=== PATIENT | male | born 1985 | race Caucasian/White ===

== ENCOUNTER 2022-12-08 17:28 | Emergency (ER) | payer BC, OTHER ==
--- NOTE | 2022-12-08 18:00 | ED ---
General Adult HPI - General Stated complaint: lower abd pain Time Seen by Provider: 12/08/22 17:59 - History of Present Illness Initial comments: Patient is a 37-year-old male presenting with chief complaint of abdominal pain. Patient states that he is having pain across the bilateral lower quadrants, he is also having worsening GERD symptoms. Pain is worse on the left side. Patient had similar pain a few weeks ago which then stopped, pain resumed 3 days ago. He admits to nausea, vomiting, diarrhea. No chest pain, difficulty breathing, fever, chills, hematemesis, hematochezia, melena, rectal bleeding, rectal pain, dysuria, hematuria, back pain. - Related Data Home Medications Medication Instructions Recorded Confirmed Ondansetron Odt [Zofran ODT] 4 mg SL Q8H PRN 12/08/22 12/08/22 Previous Rx's Medication Instructions Recorded Omeprazole 20 mg PO DAILY #20 cap 12/08/22 Ondansetron Odt [Zofran Odt] 4 mg PO Q8HR PRN #20 tab 12/08/22 Allergies Allergy/AdvReac Type Severity Reaction Status Date / Time No Known Allergies Allergy Verified 12/08/22 18:09 Review of Systems ROS Statement: Those systems with pertinent positive or pertinent negative responses have been documented in the HPI. ROS Other: All systems not noted in ROS Statement are negative. Past Medical History Past Medical History: No Reported History History of Any Multi-Drug Resistant Organisms: None Reported Past Surgical History: No Surgical Hx Reported Past Psychological History: No Psychological Hx Reported Past Alcohol Use History: None Reported Past Drug Use History: None Reported General Exam - General Exam Comments Initial Comments: Visual Physical Exam Vital signs reviewed General: Well-appearing, nontoxic, no acute distress. Head: Normocephalic, atraumatic Eyes: PERRLA, EOMI ENT: Airway patent Chest: Nonlabored breathing Skin: No visual rash, normal skin tone Neuro: Alert and oriented 3 Musculoskeletal: No gross abnormalities Limitations: no limitations General appearance: alert, in no apparent distress Head exam: Present: atraumatic, normocephalic, normal inspection Eye exam: Present: normal appearance, EOMI. Absent: scleral icterus, periorbital swelling Neck exam: Present: normal inspection, full ROM Respiratory exam: Present: normal lung sounds bilaterally. Absent: respiratory distress, wheezes, rales, rhonchi, stridor Cardiovascular Exam: Present: regular rate, normal rhythm, normal heart sounds. Absent: systolic murmur, diastolic murmur, rubs, gallop, clicks GI/Abdominal exam: Present: soft, tenderness (diffuse). Absent: distended, guarding, rebound, rigid Rectal exam: Present: normal inspection, normal rectal tone Neurological exam: Present: alert, oriented X3, CN II-XII intact Psychiatric exam: Present: normal affect, normal mood Skin exam: Present: warm, dry, intact, normal color. Absent: rash Course Vital Signs 12/08/22 12/08/22 18:07 22:05 Temperature 98.6 F 98.1 F Pulse Rate 88 76 Respiratory 16 16 Rate Blood Pressure 138/92 130/78 O2 Sat by Pulse 97 99 Oximetry Medical Decision Making - Medical Decision Making Was pt. sent in by a medical professional or institution (, PA, GEOLOGICAL DRAFTER, urgent care, hospital, or shelter...) When possible be specific @ -No Did you speak to anyone other than the patient for history (EMS, parent, family, police, friend...)? What history was obtained from this source @ -No Did you review nursing and triage notes (agree or disagree)? Why? @ -I reviewed and agree with nursing and triage notes Were old charts reviewed (outside hosp., previous admission, EMS record, old EKG, old radiological studies, urgent care reports/EKG's, shelter records)? Report findings @ -No old charts were reviewed Differential Diagnosis (chest pain, altered mental status, abdominal pain women, abdominal pain men, vaginal bleeding, weakness, fever, dyspnea, syncope, headache, dizziness, GI bleed, back pain, seizure, CVA, palpatations, mental health, musculoskeletal)? @ -MDM Differential Abdominal Pain Men: Appendicitis, cholecystitis, diverticulosis, ischemic bowel, pancreatitis, hepatitis, UTI, gastroenteritis, AAA, incarcerated hernia, bowel obstruction, constipation, inflammatory bowel, hepatitis, peptic ulcer disease, splenic infarction, perforated viscus, testicular torsion... This is not meant to be an all-inclusive list EKG interpreted by me (3pts min.). @ -As above X-rays interpreted by me (1pt min.). @ -None done CT interpreted by me (1pt min.). @ CT initially showed focal area of eccentric rectal wall thickening as well as mild adjacent fat stranding correlate with colitis. CT was repeated with rectal contrast which showed that rectal wall thickening was no longer visualized there was also no more abnormal wall thickening present in the colon U/S interpreted by me (1pt. min.). @ -None done What testing was considered but not performed or refused? (CT, X-rays, U/S, labs)? Why? @ -None What meds were considered but not given or refused? Why? @ -None Did you discuss the management of the patient with other professionals (professionals i.e. , PA, GEOLOGICAL DRAFTER, lab, RT, psych nurse, community mental health social worker, annealer, teacher, juvenile probation officer, high risk case manager)? Give summary @ -No Was smoking cessation discussed for >3mins.? @ -No Was critical care preformed (if so, how long)? @ -No Were there social determinants of health that impacted care today? How? (Homelessness, low income, unemployed, alcoholism, drug addiction, transportation, low edu. Level, literacy, decrease access to med. care, correction, rehab)? @ -No Was there de-escalation of care discussed even if they declined (Discuss DNR or withdrawal of care, Hospice)? DNR status @ -No What co-morbidities impacted this encounter? (DM, HTN, Smoking, COPD, CAD, Cancer, CVA, ARF, Chemo, Hep., AIDS, mental health diagnosis, sleep apnea, morbid obesity)? @ -None Was patient admitted / discharged? Hospital course, mention meds given and route, prescriptions, significant lab abnormalities, going to OR and other pertinent info. @ -Discharge. Patient is a 37-year-old male presenting with chief complaint of left-sided abdominal pain as well as nausea, vomiting, diarrhea. On physical examination there is some diffuse abdominal tenderness. Lab work is essentially unremarkable. Initial CT showed evidence of rectal wall thickening and signs of colitis, repeat CT with rectal contrast on which rectal wall thickening and signs of colitis were no longer visualized with full distention. Patient is educated on these findings. He is instructed to follow-up with PCP. I provided him with omeprazole for his increased GERD symptoms. Follow-up with PCP. Report back to ER with any new or worsening symptoms. Discussed return parameters and answered all questions. Patient conveyed verbal understanding and agreed to the plan. I discussed this case in detail with my attending Dr. Norris Undiagnosed new problem with uncertain prognosis? @ -No Drug Therapy requiring intensive monitoring for toxicity (Heparin, Nitro, Insulin, Cardizem)? @ -No Were any procedures done? @ -No Diagnosis/symptom? @ -GERD Acute, or Chronic, or Acute on Chronic? @ -Acute Uncomplicated (without systemic symptoms) or Complicated (systemic symptoms)? @ -Uncomplicated Side effects of treatment? @ -No Exacerbation, Progression, or Severe Exacerbation? @ -No Poses a threat to life or bodily function? How? (Chest pain, [place], [place], pneumonia, PE, COPD, DKA, ARF, appy, cholecystitis, CVA, Diverticulitis, Homicidal, Suicidal, threat to staff... and all critical care pts) @ -No - Lab Data Result diagrams: 12/08/22 19:22 12/08/22 19:22 Lab Results 12/08/22 12/08/22 12/08/22 Range/Units 19:22 19:22 19:22 WBC 4.5 (3.8-10.6) k/uL RBC 5.43 (4.30-5.90) m/uL Hgb 15.8 (13.0-17.5) gm/dL Hct 47.1 (39.0-53.0) % MCV 86.9 (80.0-100.0) fL MCH 29.1 (25.0-35.0) pg MCHC 33.5 (31.0-37.0) g/dL RDW 12.3 (11.5-15.5) % Plt Count 184 (150-450) k/uL MPV 9.4 Neutrophils % 45 % Lymphocytes % 38 % Monocytes % 8 % Eosinophils % 4 % Basophils % 0 % Neutrophils # 2.0 (1.3-7.7) k/uL Lymphocytes # 1.7 (1.0-4.8) k/uL Monocytes # 0.4 (0-1.0) k/uL Eosinophils # 0.2 (0-0.7) k/uL Basophils # 0.0 (0-0.2) k/uL Sodium 138 (137-145) mmol/L Potassium 4.0 (3.5-5.1) mmol/L Chloride 104 (98-107) mmol/L Carbon Dioxide 23 (22-30) mmol/L Anion Gap 11 mmol/L BUN 13 (9-20) mg/dL Creatinine 0.87 (0.66-1.25) mg/dL Est GFR (CKD-EPI)AfAm >90 (>60 ml/min/1.73 sqM) Est GFR (CKD-EPI)NonAf >90 (>60 ml/min/1.73 sqM) Glucose 88 (74-99) mg/dL Plasma Lactic Acid [place] 0.9 (0.7-2.0) mmol/L Calcium 9.2 (8.4-10.2) mg/dL Total Bilirubin 1.1 (0.2-1.3) mg/dL AST 45 (17-59) U/L ALT 73 H (4-49) U/L Alkaline Phosphatase 54 (38-126) U/L Total Protein 7.8 (6.3-8.2) g/dL Albumin 4.6 (3.5-5.0) g/dL Amylase 47 (30-110) U/L Lipase 55 (23-300) U/L Urine Color Urine Appearance (Clear) Urine pH (5.0-8.0) Ur Specific [place] (1.001-1.035) Urine Protein (Negative) Urine Glucose (UA) (Negative) Urine Ketones (Negative) Urine Blood (Negative) Urine Nitrite (Negative) Urine Bilirubin (Negative) Urine Urobilinogen (<2.0) mg/dL Ur Leukocyte Esterase (Negative) 12/08/22 Range/Units 22:05 WBC (3.8-10.6) k/uL RBC (4.30-5.90) m/uL Hgb (13.0-17.5) gm/dL Hct (39.0-53.0) % MCV (80.0-100.0) fL MCH (25.0-35.0) pg MCHC (31.0-37.0) g/dL RDW (11.5-15.5) % Plt Count (150-450) k/uL MPV Neutrophils % % Lymphocytes % % Monocytes % % Eosinophils % % Basophils % % Neutrophils # (1.3-7.7) k/uL Lymphocytes # (1.0-4.8) k/uL Monocytes # (0-1.0) k/uL Eosinophils # (0-0.7) k/uL Basophils # (0-0.2) k/uL Sodium (137-145) mmol/L Potassium (3.5-5.1) mmol/L Chloride (98-107) mmol/L Carbon Dioxide (22-30) mmol/L Anion Gap mmol/L BUN (9-20) mg/dL Creatinine (0.66-1.25) mg/dL Est GFR (CKD-EPI)AfAm (>60 ml/min/1.73 sqM) Est GFR (CKD-EPI)NonAf (>60 ml/min/1.73 sqM) Glucose (74-99) mg/dL Plasma Lactic Acid [place] (0.7-2.0) mmol/L Calcium (8.4-10.2) mg/dL Total Bilirubin (0.2-1.3) mg/dL AST (17-59) U/L ALT (4-49) U/L Alkaline Phosphatase (38-126) U/L Total Protein (6.3-8.2) g/dL Albumin (3.5-5.0) g/dL Amylase (30-110) U/L Lipase (23-300) U/L Urine Color Yellow Urine Appearance Clear (Clear) Urine pH 5.5 (5.0-8.0) Ur Specific [place] >1.050 H (1.001-1.035) Urine Protein Trace H (Negative) Urine Glucose (UA) Negative (Negative) Urine Ketones Negative (Negative) Urine Blood Negative (Negative) Urine Nitrite Negative (Negative) Urine Bilirubin Negative (Negative) Urine Urobilinogen <2.0 (<2.0) mg/dL Ur Leukocyte Esterase Negative (Negative) Disposition Clinical Impression: Abdominal pain, GERD (gastroesophageal reflux disease) Disposition: HOME SELF-CARE Condition: Good Instructions (If sedation given, give patient instructions): Abdominal Pain (ED) Additional Instructions: Follow-up with PCP, suggestions have been provided. Report back to ER with any new or worsening symptoms. Take medication as prescribed. Prescriptions: Omeprazole 20 mg PO DAILY #20 cap Ondansetron Odt [Zofran Odt] 4 mg PO Q8HR PRN #20 tab PRN Reason: Nausea Is patient prescribed a controlled substance at d/c from ED?: No Referrals: None,Stated [Primary Care Provider] - 1-2 days [facility] [NON-STAFF] - 1-2 days Kelvin Morales MD [STAFF PHYSICIAN] - 1-2 days Time of Disposition: 22:50
[2022-12-08 18:09] VITALS: RESP 16
[2022-12-08] MEDS ORDERED: SODIUM CHLORIDE 0.9% 1,000 ML IV STA (19:04)
[2022-12-08] MEDS ORDERED: ONDANSETRON 4 MG/2 ML VIAL IVP STA (19:04)
[2022-12-08] MEDS ORDERED: KETOROLAC 15 MG/ML 1 ML VIAL IVP STA (19:04)
[2022-12-08 19:43] LABS: Basophils % (A) 0 %; Eosinophils # (A) 0.2 k/uL (0-0.7); Eosinophils % (A) 4 %; HCT 47.1 % (39.0-53.0); HGB 15.8 gm/dL (13.0-17.5); Lymphocytes # (A) 1.7 k/uL (1.0-4.8); Lymphocytes % (A) 38 %; MCH 29.1 pg (25.0-35.0); MCHC 33.5 g/dL (31.0-37.0); MCV 86.9 fL (80.0-100.0); Mean Platelet Volume 9.4; Monocytes # (A) 0.4 k/uL (0-1.0); Monocytes % (A) 8 %; Neutrophils % (A) 45 %; Platelet Count 184 k/uL (150-450); RBC 5.43 m/uL (4.30-5.90); RDW 12.3 % (11.5-15.5); WBC 4.5 k/uL (3.8-10.6)
--- NOTE | 2022-12-08 19:58 | CT ---
EXAMINATION TYPE: CT abdomen pelvis w con CT DLP: 1490 mGycm, Automated exposure control for dose reduction was used. DATE OF EXAM: 12/08/2022 7:44 PM COMPARISON: None CLINICAL INDICATION:Male, 37 years old with history of Left lower quadrant pain; LLQ pain TECHNIQUE: Axial CT of the abdomen and pelvis. Sagittal and coronal reformats were created on a [employer] workstation. Contrast used:100 mL of Isovue 300 with IV Contrast, Oral contrast used: without Oral Contrast FINDINGS: LOWER CHEST: Unremarkable ABDOMEN LIVER: Diffusely hypoattenuating parenchyma. GALLBLADDER AND BILE DUCTS: Unremarkable. PANCREAS: Unremarkable. SPLEEN: Unremarkable. ADRENAL GLANDS: Unremarkable. KIDNEYS AND URETERS: No evidence of hydronephrosis or renal calculus. The ureters are unremarkable. Duplicated left collecting system. PELVIS BLADDER: Unremarkable REPRODUCTIVE: Unremarkable. ABDOMEN & PELVIS STOMACH AND BOWEL: No evidence of bowel obstruction. The appendix is not definitively visualized. Mil d narrowing of the rectum with eccentric wall thickening series 201 image 79 measuring up to 6 mm. Th ere is some mild fat stranding changes in this region. Moderate amount of stool within the sigmoid co candace. PERITONEUM/RETROPERITONEUM: No evidence of pneumoperitoneum or free fluid. VASCULATURE: No evidence of aortic aneurysm. MUSCULOSKELETAL: No acute osseous abnormalities LYMPH NODES: No gross evidence for lymphadenopathy. SOFT TISSUE/ABDOMINAL WALL: Unremarkable IMPRESSION: There is focal area of eccentric rectal wall thickening appreciated which is indeterminate. Mild smita cent fat stranding changes are felt to be present which could correlate with patient's pain with a co litis. Given the eccentric appearance underlying neoplasm is not excluded. Further evaluation and cor relation for risk factors for rectal cancer are recommended.
[2022-12-08 20:09] LABS: ALT 73 U/L (4-49); African American GFR (CKD) >90 (>60 ml/min/1.73 sqM); Albumin 4.6 g/dL (3.5-5.0); Amylase 47 U/L (30-110); Anion Gap 11 mmol/L; Blood Urea Nitrogen 13 mg/dL (9-20); Calcium 9.2 mg/dL (8.4-10.2); Carbon Dioxide 23 mmol/L (22-30); Chloride 104 mmol/L (98-107); Glucose 88 mg/dL (74-99); Lipase 55 U/L (23-300); Non-African American GFR(CKD) >90 (>60 ml/min/1.73 sqM); Sodium 138 mmol/L (137-145); Total Bilirubin 1.1 mg/dL (0.2-1.3); Total Protein 7.8 g/dL (6.3-8.2)
[2022-12-08 20:14] LABS: AST 45 U/L (17-59); Alkaline Phosphatase 54 U/L (38-126)
--- NOTE | 2022-12-08 22:15 | CT ---
EXAMINATION TYPE: CT abdomen pelvis wo con CT DLP: 751.2 mGycm, Automated exposure control for dose reduction was used. DATE OF EXAM: 12/08/2022 10:04 PM COMPARISON: CT abdomen pelvis most recent from same day CLINICAL INDICATION:Male, 37 years old with history of rectal wall thickening; rectal wall thickening TECHNIQUE: Axial CT of the pelvis. Sagittal and coronal reformats were created on a separate worksta tion. Contrast used: None contrast used: Rectal contrast. FINDINGS: BLADDER: Unremarkable REPRODUCTIVE: Unremarkable. ABDOMEN & PELVIS STOMACH AND BOWEL: No evidence of bowel obstruction. The rectum is completely distended with rectal c ontrast. Evaluation demonstrates no evidence of focal thickening seen on prior CT. Fat stranding montejo ges seen posterior to the rectal wall thickening are no longer visualized. No evidence of wall thicke huan of the visualized colon within the abdomen. PERITONEUM/RETROPERITONEUM: No evidence of pneumoperitoneum or free fluid. VASCULATURE: No evidence of aortic aneurysm. MUSCULOSKELETAL: No acute osseous abnormalities LYMPH NODES: No gross evidence for lymphadenopathy. SOFT TISSUE/ABDOMINAL WALL: Unremarkable IMPRESSION: Prior area of focal rectal wall thickening is no longer visualized. Finding on prior was nondistentio n artifact. There is no abnormal wall thickening present in the visualized colon on this exam. No acu te abdominal process visualized. The questionable fat stranding changes around this nondistended port ion on previous CT is not definitively visualized now with full distention.
[2022-12-08 22:22] LABS: Appearance,Urine Clear (Clear); Bilirubin,Urine Negative (Negative); Blood,Urine Negative (Negative); Color,Urine Yellow; Glucose,Urine (UA) Negative (Negative); Ketones,Urine Negative (Negative); Leukocyte Esterase,Urine Negative (Negative); Nitrite,Urine Negative (Negative); PH, Urine 5.5 (5.0-8.0); Protein,Urine Trace (Negative); Urobilinogen,Urine <2.0 mg/dL (<2.0)
[2022-12-08 22:24] LABS: Specific Gravity,Urine >1.050 (1.001-1.035)
[2022-12-08 22:38] VITALS: BP 130/78; PULSE 76
[2022-12-08 22:48] VITALS: TEMP 98.1
== END 2022-12-08 22:55 | disposition home or self-care (01) ==
LOC: EC 17:28
DX: K21.9 Gastro-esophageal reflux disease without esophagitis (principal); K52.9 Noninfective gastroenteritis and colitis, unspecified; R10.31 Right lower quadrant pain
CPT/HCPCS: 36415; 80053; 82150; 83605; 83690; 85025; 81003; 74176; 74177; 99284; 96374; 96375; 96361 ×3; J2405; J1885; Q9967

== ENCOUNTER → 2024-04-03 | Outpatient (CLI) | payer OTHER | LOC: CPPFTMAIN 09:35 | PROVIDERS: ATTEND Internal Medicine | DX: J45.909 Unspecified asthma, uncomplicated (principal) | CPT/HCPCS: 94060; 94726; 94729 ==

== ENCOUNTER 2024-09-07 21:51 | Emergency (ER) | payer OTHER ==
[2024-09-07 21:57] VITALS: TEMP 98.3
[2024-09-07 22:41] LABS: Basophils # (A) 0.1 k/uL (0-0.2); Basophils % (A) 1 %; Eosinophils # (A) 0.5 k/uL (0-0.7); Eosinophils % (A) 5 %; HCT 47.9 % (39.0-53.0); HGB 16.6 gm/dL (13.0-17.5); Lymphocytes # (A) 2.5 k/uL (1.0-4.8); Lymphocytes % (A) 26 %; MCH 30.2 pg (25.0-35.0); MCHC 34.8 g/dL (31.0-37.0); MCV 86.8 fL (80.0-100.0); Mean Platelet Volume 9.7; Monocytes # (A) 0.6 k/uL (0-1.0); Monocytes % (A) 6 %; Neutrophils # (A) 5.7 k/uL (1.3-7.7); Neutrophils % (A) 59 %; Platelet Count 198 k/uL (150-450); RBC 5.52 m/uL (4.30-5.90); RDW 12.5 % (11.5-15.5); WBC 9.5 k/uL (3.8-10.6)
[2024-09-07] MEDS: KETOROLAC 15 MG/ML 1 ML VIAL IVP STA (22:41)
[2024-09-07] MEDS: SODIUM CHLORIDE 0.9% 1,000 ML IV STA (22:41)
[2024-09-07 22:54] LABS: INR 0.9 (<1.2); Partial Thromboplastin Time 24.1 sec (22.0-30.0); Prothrombin Time 10.1 sec (10.0-12.5)
--- NOTE | 2024-09-07 22:56 | ED ---
Chest Pain HPI - General Source: patient, RN notes reviewed Mode of arrival: ambulatory Limitations: no limitations - History of Present Illness MD Complaint: chest pain <Jessica Sinclair - Last Filed: 09/08/24 00:59> <Jennifer Sylvester - Last Filed: 09/08/24 04:21> - General Chief Complaint: Chest Pain Stated Complaint: Chest Pain, Shortness of Breath Time Seen by Provider: 09/07/24 22:03 - History of Present Illness Initial Comments: This is a 39-year-old male who presents to the emergency department for chest pain. Reports having URI symptoms for the last couple of days. This morning he started to develop chest pain around 6 AM. Pain is left-sided and states that it radiates into his back. He feels short of breath and is also having difficulty taking a deep breath. Pain is described as sharp and worse with inhalation. Denies any personal history of cardiac issues. Reports a possible cardiac history in one of his grandparents. Denies any nausea or vomiting or history of chest pain like this in the past. (Jessica Sinclair) - Related Data Home Medications Medication Instructions Recorded Confirmed Ondansetron Odt [Zofran ODT] 4 mg SL Q8H PRN 12/08/22 12/08/22 Previous Rx's Medication Instructions Recorded Omeprazole 20 mg PO DAILY #20 cap 12/08/22 Ondansetron Odt [Zofran Odt] 4 mg PO Q8HR PRN #20 tab 12/08/22 Allergies Allergy/AdvReac Type Severity Reaction Status Date / Time No Known Allergies Allergy Verified 09/07/24 21:57 Review of Systems ROS Other: All systems not noted in ROS Statement are negative. <Jessica Sinclair - Last Filed: 09/08/24 00:59> ROS Other: All systems not noted in ROS Statement are negative. <Jennifer Sylvester - Last Filed: 09/08/24 04:21> ROS Statement: Those systems with pertinent positive or pertinent negative responses have been documented in the HPI. Past Medical History Past Medical History: No Reported History History of Any Multi-Drug Resistant Organisms: None Reported Past Surgical History: No Surgical Hx Reported Past Psychological History: No Psychological Hx Reported Smoking Status: Never smoker Past Alcohol Use History: None Reported Past Drug Use History: None Reported <Jessica Sinclair - Last Filed: 09/08/24 00:59> General Exam Limitations: no limitations General appearance: alert, in no apparent distress Head exam: Present: atraumatic, normocephalic, normal inspection Respiratory exam: Present: normal lung sounds bilaterally, chest wall tenderness. Absent: respiratory distress, wheezes, rales, rhonchi, stridor Cardiovascular Exam: Present: regular rate, normal rhythm, normal heart sounds. Absent: systolic murmur, diastolic murmur, rubs, gallop, clicks Neurological exam: Present: alert, oriented X3, CN II-XII intact Psychiatric exam: Present: normal affect, normal mood Skin exam: Present: warm, dry, intact, normal color. Absent: rash <Jessica Sinclair - Last Filed: 09/08/24 00:59> Course Vital Signs 09/07/24 09/08/24 09/08/24 21:54 00:12 01:52 Temperature 98.3 F Pulse Rate 86 76 79 Respiratory 20 18 18 Rate Blood Pressure 145/106 131/70 121/80 O2 Sat by Pulse 97 97 99 Oximetry Chest Pain MDM <Jessica Sinclair - Last Filed: 09/08/24 00:59> - MDM This is a 39-year-old male who presents to the emergency department for chest pain. Was pt. sent in by a medical professional or institution? @ -No Did you speak to anyone other than the patient for history? @ -No Did you review nursing and triage notes? @ -Yes, and I agree, it is accurate with regards to the patient's symptoms. Were old charts reviewed? @ -No Differential Diagnosis? @ -Differential Chest Pain: Stable Angina, Unstable Angina, STEMI, NSTEMI Aortic Dissection, Pneumothorax, Musculoskeletal, Esophageal Spasm GERD, Cholecystitis, Pancreatitis, Zoster, this is not meant to be an all-inclusive list. EKG interpreted by me (3pts min.)? @ -EKG interpreted by me demonstrating the following: Sinus rhythm. Ventri cular rate 90 bpm, NE interval 150 ms, QRS duration 106 ms, QTc 409 ms. X-rays interpreted by me (1pt min.)? @ -Chest x-ray obtained, my interpretation identifies no localized consolidations or infiltrates. CT interpreted by me (1pt min.)? @ -Not obtained U/S interpreted by me (1pt. min.)? @ -Not obtained What testing was considered but not performed? (CT, X-rays, U/S, labs)? Why? @ -None What meds were considered but not given? Why? @ -None Did you discuss the management of the patient with other professionals? @ -No Did you reconcile home meds? @ -No Was smoking cessation discussed for >3mins.? @ -No Was critical care preformed (if so, how long)? @ -No Were there social determinants of health that impacted care today? How? (Homelessness, low income, unemployed, alcoholism, drug addiction, transportation, low edu. Level, literacy, decrease access to med. care, longterm, rehab)? @ -No Was there de-escalation of care discussed even if they declined? (Discuss DNR or withdrawal of care, Hospice)? @ -No What co-morbidities impacted this encounter? (DM, HTN, Smoking, COPD, CAD, Cancer, CVA, Hep., AIDS, mental health diagnosis, sleep apnea, morbid obesity)? @ -None Was patient admitted / discharged? @ -Lab work unremarkable. D-dimer and troponin negative. COVID, influenza, and RSV testing negative. Chest x-ray reveals no acute process. On exam his pain was reproducible. We started with a dose of Toradol and he felt like he may have had some improvement with this. He was then given aspirin and nitroglycerin. He is not sure if this was effective or not. States that it is possible. Nitro paste was then applied. He again felt like it may have brought the pain down a notch but is not entirely sure. It is also possible that the Toradol had been given more time to work. While the patient is obese, he has no other cardiac risk factors. Patient in agreement with a repeat troponin. Case signed out to Jennifer Sylvester PA-C, at shift completion pending repeat troponin and disposition. Undiagnosed new problem with uncertain prognosis? @ -None (Jessica Sinclair) Disposition <Jessica Sinclair - Last Filed: 09/08/24 00:59> Is patient prescribed a controlled substance at d/c from ED?: No <Jennifer Sylvester - Last Filed: 09/08/24 04:21> Clinical Impression: Atypical chest pain Disposition: HOME SELF-CARE Condition: Stable Instructions (If sedation given, give patient instructions): Chest Pain (ED) Additional Instructions: Please follow up with your primary care provider. Return to the emergency department for new or worsening symptoms. Referrals: Jermaine Blum DO [Primary Care Provider] - 1-2 days
[2024-09-07 23:17] LABS: ALT 74 U/L (4-49); AST 40 U/L (17-59); African American GFR (CKD) >90 (>60 ml/min/1.73 sqM); Albumin 4.8 g/dL (3.5-5.0); Alkaline Phosphatase 68 U/L (38-126); Anion Gap 10 mmol/L; Blood Urea Nitrogen 18 mg/dL (9-20); Calcium 9.8 mg/dL (8.4-10.2); Carbon Dioxide 27 mmol/L (22-30); Chloride 102 mmol/L (98-107); Glucose 91 mg/dL (74-99); Magnesium 1.9 mg/dL (1.6-2.3); Non-African American GFR(CKD) 78 (>60 ml/min/1.73 sqM); Potassium 3.9 mmol/L (3.5-5.1); Sodium 139 mmol/L (137-145); Total Bilirubin 0.6 mg/dL (0.2-1.3); Total Protein 7.8 g/dL (6.3-8.2)
[2024-09-07] MEDS: ASPIRIN 81 MG PO STA (23:34)
[2024-09-07] MEDS: NITROGLYCERIN SL TABS 0.4 MG TAB SUBLINGUAL STA (23:34)
[2024-09-07 23:49] LABS: Influenza A Not Detected (Not Detectd); Influenza B Not Detected (Not Detectd); RSV Not Detected (Not Detectd)
[2024-09-08] MEDS: NITROGLYCERIN OINT 1 INCH/GM PACKET TOPICAL STA (00:04)
--- NOTE | 2024-09-08 00:17 | XR ---
EXAM: XR Chest, 2 Views CLINICAL HISTORY: ITS.REASON XR Reason: Chest Pain TECHNIQUE: Frontal and lateral views of the chest. COMPARISON: 12/04/2017. FINDINGS: Lungs: Unremarkable. No consolidative changes or pleural effusions. Pleural space: See above. Heart: Unremarkable. No cardiomegaly. Mediastinum: Unremarkable. Normal mediastinal contour. Bones/joints: The osseous structures and soft tissues are unremarkable. No acute fracture. Upper abdomen: Eventration of the left hemidiaphragm. Other findings: Mild hypoaeration. IMPRESSION: No consolidative changes or pleural effusions.
[2024-09-08 00:27] VITALS: RESP 18
[2024-09-08 01:53] VITALS: BP 121/80; PULSE 79
== END 2024-09-08 02:55 | disposition home or self-care (01) ==
LOC: EC 21:51
DX: R07.89 Other chest pain (principal)
CPT/HCPCS: 36415 ×2; 93005; 85379; 80053; 83735; 84484 ×2; 85025; 85610; 85730; 87636; 71046; 99285; 96374; 96361 ×4; J1885